=== PATIENT | male | born 1955 | race Caucasian/White ===

== ENCOUNTER 2017-10-03 22:59 | Emergency (ER) | payer MEDICAID ==
[~2017-10-03] VITALS: Ht 180.3 cm; Wt 110.8 kg
[2017-10-04 01:14] LABS: HEMATOCRIT 43.4 % (39.2-51.8); WHITE BLOOD COUNT 5.6 x10^3/uL (3.4-10)
[2017-10-04 01:20] LABS: BLOOD UREA NITROGEN 8 mg/dL (7-18)
[2017-10-04 01:44] VITALS: BP 124/80
== END 2017-10-04 02:44 | disposition home or self-care (01) ==
LOC: ED 10-04 02:38
DX: I87.2 Venous insufficiency (chronic) (peripheral) (principal); R60.0 Localized edema; Z59.0 Homelessness
CPT/HCPCS: 36415; 71020; 80048; 82040; 83880; 85025; 93005

== ENCOUNTER 2017-10-20 20:10 | Inpatient (IN) | payer MEDICAID ==
[~2017-10-20] VITALS: Ht 180.3 cm; Wt 102.0 kg
[2017-10-20] MEDS ORDERED: SODIUM CHLORIDE FLUSH 10ML SYR IVF ONE (20:30)
[2017-10-20] MEDS ORDERED: SODIUM CHLORIDE 0.9% 1,000ML IVBOLUS ONE (20:30)
[2017-10-20 20:55] LABS: WHITE BLOOD COUNT 7.9 x10^3/uL (3.4-10)
[2017-10-20] MEDS ORDERED: ADENOSINE 6 MG/2 ML ONE ×2 (20:56→20:58)
[2017-10-20] MEDS ORDERED: DILTIAZEM 125 MG in SODIUM CHLORIDE 0.9% 100 ML IV ONE (21:07)
[2017-10-20] MEDS ORDERED: DILTIAZEM 5 MG/ML, 5ML ONE (21:07)
[2017-10-20 21:08] LABS: BLOOD UREA NITROGEN 9 mg/dL (7-18)
[2017-10-20 21:13] LABS: IS PT STATUS REG ER OR PRE ER? YES
[2017-10-20] MEDS ORDERED: AMIODARONE 50 MG/ML, 3ML ONE (21:29)
[2017-10-20] MEDS ORDERED: MORPHINE SULFATE 4 MG/ML, 1ML ONE (21:29)
[2017-10-20] MEDS ORDERED: DILTIAZEM 5 MG/ML, 5ML IVPush ONE (21:30)
[2017-10-20] MEDS ORDERED: METOPROLOL 1 MG/ML, 5ML IVPush ONE (21:30)
[2017-10-20] MEDS ORDERED: morphine SULFATE 10 MG/ML, 1ML IVPush ONE (21:30)
[2017-10-20] MEDS ORDERED: AMIODARONE 50 MG/ML, 3ML IVPush ONE (21:30)
[2017-10-20] MEDS ORDERED: ENOXAPARIN 120MG/0.8ML SQ ONE (21:30)
[2017-10-20] MEDS ORDERED: FILTER 0.22 MICRON IV ONE (22:00)
[2017-10-20] MEDS ORDERED: AMIODARONE 150 MG in DEXTROSE 5% 100 ML IV ONE (22:00)
[2017-10-20] MEDS ORDERED: SODIUM CHLORIDE 0.9% 1,000 ML IV SCH (23:21)
[2017-10-20 23:22] VITALS: BP 123/74
[2017-10-20] MEDS ORDERED: HEPARIN 5,000 UNITS/ML, 1ML SQ SCH (23:30)
[2017-10-20] MEDS ORDERED: ADENOSINE 6 MG/2 ML IVPush ONE ×2 (23:30)
[2017-10-20] MEDS ORDERED: DOCUSATE 100 MG CAPSULE PO PRN (23:30)
[2017-10-20] MEDS ORDERED: ONDANSETRON 2MG/ML, 2ML IVPush PRN (23:30)
[2017-10-20] MEDS ORDERED: BISACODYL 10 MG SUPP PR PRN (23:30)
[2017-10-20] MEDS ORDERED: PROMETHAZINE 25 MG/ML, 1ML IM PRN (23:30)
[2017-10-20] MEDS ORDERED: ACETAMINOPHEN 325 MG TABLET PO PRN (23:30)
[2017-10-20] MEDS ORDERED: VANCOMYCIN PER PHARMACY MC PRN (23:45)
[2017-10-21] MEDS: VANCOMYCIN 2,000 MG in SODIUM CHLORIDE 0.9% 500 ML IV SCH ×2 (00:16→13:53)
[2017-10-21 01:35] VITALS: BP 118/71
[2017-10-21 05:34] LABS: HEMATOCRIT 39.3 % (39.2-51.8); HEMOGLOBIN 13.2 g/dL (13.7-18.0); WHITE BLOOD COUNT 8.1 x10^3/uL (3.4-10)
[2017-10-21 06:16] LABS: ASPARTATE AMINO TRANSFERASE 81 U/L (15-37); BLOOD UREA NITROGEN 9 mg/dL (7-18)
[2017-10-21 08:30] VITALS: BP 98/55
[2017-10-21 15:08] VITALS: BP 121/68
[2017-10-21] MEDS: ENOXAPARIN 40 MG/0.4 ML SQ SCH (18:30)
[2017-10-21 18:52] VITALS: BP 113/68
[2017-10-21] MEDS: FAMOTIDINE 20 MG/2 ML IVPush SCH (20:24)
[2017-10-21] MEDS: CLOTRIMAZOLE CRM 1%, 15GM TP SCH (22:19)
[2017-10-22] MEDS: VANCOMYCIN 2,000 MG in SODIUM CHLORIDE 0.9% 500 ML IV SCH ×2 (01:39→12:39)
[2017-10-22 01:51] VITALS: BP 111/77
[2017-10-22 06:11] LABS: BLOOD UREA NITROGEN 8 mg/dL (7-18)
[2017-10-22 07:30] VITALS: BP 118/61
[2017-10-22] MEDS: FAMOTIDINE 20 MG/2 ML IVPush SCH ×2 (08:34→20:48)
[2017-10-22] MEDS: CLOTRIMAZOLE CRM 1%, 15GM TP SCH ×2 (08:34→20:48)
[2017-10-22 11:34] LABS: ABG COLLECTION SITE RIGHT RADIAL; COLLATERAL CIRCULATION TESTING NORMAL
[2017-10-22 13:40] VITALS: BP 113/67
[2017-10-22] MEDS: ENOXAPARIN 40 MG/0.4 ML SQ SCH (16:29)
[2017-10-22 18:24] VITALS: BP 121/68
[2017-10-23] MEDS: VANCOMYCIN 2,000 MG in SODIUM CHLORIDE 0.9% 500 ML IV SCH ×2 (00:37→12:33)
[2017-10-23 02:54] VITALS: BP 149/81
[2017-10-23 06:30] VITALS: BP 131/68
[2017-10-23] MEDS: FAMOTIDINE 20 MG/2 ML IVPush SCH ×2 (09:07→20:55)
[2017-10-23] MEDS: CLOTRIMAZOLE CRM 1%, 15GM TP SCH ×2 (09:07→20:55)
[2017-10-23 12:30] VITALS: BP 121/69
[2017-10-23] MEDS: ENOXAPARIN 40 MG/0.4 ML SQ SCH (15:34)
[2017-10-23 20:00] VITALS: BP 128/72
[2017-10-24] MEDS: VANCOMYCIN 2,000 MG in SODIUM CHLORIDE 0.9% 500 ML IV SCH ×2 (00:18→12:41)
[2017-10-24 02:36] VITALS: BP 135/68
[2017-10-24 06:22] LABS: BLOOD UREA NITROGEN 8 mg/dL (7-18)
[2017-10-24 08:09] VITALS: BP 116/61
[2017-10-24] MEDS: MAGNESIUM CHLORIDE 64 MG TABLET.DR PO SCH ×2 (08:42→22:16)
[2017-10-24] MEDS: FAMOTIDINE 20 MG/2 ML IVPush SCH ×2 (08:43→21:53)
[2017-10-24] MEDS: CLOTRIMAZOLE CRM 1%, 15GM TP SCH ×2 (08:43→21:00)
[2017-10-24] MEDS: ENOXAPARIN 40 MG/0.4 ML SQ SCH (14:14)
[2017-10-24 15:22] VITALS: BP 123/67
[2017-10-24] MEDS ORDERED: PHARMACOKINETIC CONSULTATION MC ONE ×2 (18:00)
[2017-10-24 20:00] VITALS: BP 131/71
[2017-10-25] MEDS: VANCOMYCIN 2,000 MG in SODIUM CHLORIDE 0.9% 500 ML IV SCH ×2 (00:14→11:56)
[2017-10-25 02:00] VITALS: BP 129/73
[2017-10-25] MEDS ORDERED: SULF1TAB24 PO (06:41)
[2017-10-25] MEDS ORDERED: CLOT15CR5 TP (06:41)
[2017-10-25] MEDS: MAGNESIUM CHLORIDE 64 MG TABLET.DR PO SCH (07:46)
[2017-10-25] MEDS: CLOTRIMAZOLE CRM 1%, 15GM TP SCH (07:46)
[2017-10-25] MEDS: FAMOTIDINE 20 MG/2 ML IVPush SCH (07:46)
[2017-10-25 07:50] VITALS: BP 127/69
[2017-10-25] MEDS ORDERED: ACET325T14 PO (08:29)
[2017-10-25] MEDS ORDERED: TRAM50TA2 PO (08:29)
[2017-10-25] MEDS ORDERED: MAGN64TA9 PO (08:29)
[2017-10-25] MEDS: ENOXAPARIN 40 MG/0.4 ML SQ SCH (14:30)
[2017-10-25 14:42] VITALS: BP 131/60
== END 2017-10-25 15:20 | disposition home or self-care (01) | DRG 872 ==
LOC: ED 20:22 → EDIP 22:23 → 5SO 23:16 → 4WST 10-21 06:00
PROVIDERS: ADMIT Surgery; ATTEND Surgery
DX: A41.9 Sepsis, unspecified organism (principal); I11.0 Hypertensive heart disease with heart failure; E83.42 Hypomagnesemia; E83.51 Hypocalcemia; I50.9 Heart failure, unspecified; B35.3 Tinea pedis; E88.09 Other disorders of plasma-protein metabolism, not elsewhere classified; I48.91 Unspecified atrial fibrillation; I34.0 Nonrheumatic mitral (valve) insufficiency; I48.92 Unspecified atrial flutter; L03.115 Cellulitis of right lower limb; S52.92XA Unspecified fracture of left forearm, initial encounter for closed fracture; W18.39XA Other fall on same level, initial encounter; R26.2 Difficulty in walking, not elsewhere classified; I49.9 Cardiac arrhythmia, unspecified; S62.609A Fracture of unspecified phalanx of unspecified finger, initial encounter for closed fracture; Y92.410 Unspecified street and highway as the place of occurrence of the external cause; Z59.0 Homelessness; Z87.891 Personal history of nicotine dependence; Y93.89 Activity, other specified; Y92.89 Other specified places as the place of occurrence of the external cause; Y99.8 Other external cause status
CPT/HCPCS: 36415; 36600; 70450; 71010; 80048; 80053; 80061; 80202; 82040; 82803; 83036; 83735; 83880; 84100; 84484; 85025; 93005; 93306; 96361; 96365; 96366; 96372; J0153; J1650; J3370; J0282; J2270; J7030; J7040; S0028

== ENCOUNTER 2017-11-27 02:42 | Emergency (ER) | payer MEDICAID ==
[~2017-11-27] VITALS: Ht 177.8 cm; Wt 95.7 kg
[~2017-11-27 02:42] MED LIST: ACET325T14 PO; CLOT15CR5 TP; MAGN64TA9 PO; SULF1TAB24 PO; TRAM50TA2 PO
[2017-11-27 02:43] VITALS: BP 147/80
[2017-11-27 03:33] LABS: MEAN CORPUSCULAR HEMOGLOBIN 33.1 pg (27.5-34.5); MEAN CORPUSCULAR HGB CONC 33.9 g/dL (33.2-36.2); MEAN CORPUSCULAR VOLUME 97.4 fL (81-97); MEAN PLATELET VOLUME 9.3 fL (7.4-10.4); PLATELET COUNT 122 x10^3/uL (130-400); RED BLOOD COUNT 4.64 x10^6/uL (4.38-5.82)
[2017-11-27 03:43] LABS: ALBUMIN 1.9 g/dL (3.4-5.0); ANION GAP 4 mmol/L (5-15); CALCIUM 7.9 mg/dL (8.5-10.1); CHLORIDE 104 mmol/L (98-107); CREATININE 0.61 mg/dL (0.7-1.3)
[2017-11-27] MEDS ORDERED: LIDOCAINE 1%, 20ML ONE (03:55)
[2017-11-27] MEDS ORDERED: BACITRACIN ZINC OINT 500U/GM, 0.9 GM ONE (03:56)
[2017-11-27] MEDS ORDERED: DOXYCYCLINE 100MG TABLET PO ONE (04:00)
[2017-11-27 04:46] LABS: BASOPHILS # (AUTO) 0.05 x10^3/uL (0-0.1); BASOPHILS % (AUTO) 0 % (0-1); EOSINOPHILS # (AUTO) 0.16 x10^3/uL (0-0.4); EOSINOPHILS % (AUTO) 1 % (1-7); LYMPHOCYTES # (AUTO) 2.02 x10^3/uL (1-3.4); LYMPHOCYTES % (AUTO) 17 % (22-44); MD SCAN; MONOCYTES # (AUTO) 1.45 x10^3/uL (0.2-0.8); MONOCYTES % (AUTO) 12 % (2-9); NEUTROPHILS # (AUTO) 8.02 x10^3/uL (1.8-6.8); NEUTROPHILS % (AUTO) 69 % (42-75)
== END 2017-11-27 04:40 | disposition home or self-care (01) ==
LOC: ED 03:09
DX: L02.415 Cutaneous abscess of right lower limb (principal); L03.115 Cellulitis of right lower limb; G89.29 Other chronic pain; M79.602 Pain in left arm; I10 Essential (primary) hypertension
CPT/HCPCS: 10060; 36415; 80048; 82040; 85025; 99284

== ENCOUNTER 2018-04-27 10:08 | Inpatient (IN) | payer MEDICAID ==
[~2018-04-27] VITALS: Ht 172.7 cm; Wt 89.4 kg
[~2018-04-27 10:08] MED LIST changes: -MAGN64TA9 PO; +MAGNESIUM DR64 MG PO
[2018-04-27] MEDS ORDERED: SODIUM CHLORIDE 0.9% 1,000 ML IV ONE ×2 (10:39→12:05)
[2018-04-27] MEDS ORDERED: SODIUM CHLORIDE FLUSH 10ML SYR IVF ONE (11:00)
[2018-04-27] MEDS ORDERED: SODIUM CHLORIDE 0.9% 1,000ML IVBOLUS ONE ×2 (11:00→12:00)
[2018-04-27 11:09] LABS: INTERNATIONAL NORMALIZED RATIO 1.2 (0.93-1.1); PROTHROMBIN TIME 12.3 Seconds (9.6-11.5)
[2018-04-27 11:14] LABS: ALANINE AMINOTRANSFERASE 121 U/L (12-78); ANION GAP 6 mmol/L (5-15); CHLORIDE 110 mmol/L (98-107)
[2018-04-27 11:16] LABS: BILIRUBIN,TOTAL 2.6 mg/dL (0.2-1.0); CREATININE 0.55 mg/dL (0.7-1.3)
[2018-04-27 11:17] LABS: ACETAMINOPHEN < 2 mcg/mL (10-30); ALKALINE PHOSPHATASE 313 U/L (45-117); BASOPHILS # (AUTO) 0.05 x10^3/uL (0-0.1); BASOPHILS % (AUTO) 1 % (0-1); EOSINOPHILS # (AUTO) 0.17 x10^3/uL (0-0.4); EOSINOPHILS % (AUTO) 3 % (1-7); LYMPHOCYTES # (AUTO) 1.62 x10^3/uL (1-3.4); LYMPHOCYTES % (AUTO) 27 % (22-44); MD NO; MEAN CORPUSCULAR HEMOGLOBIN 32.6 pg (27.5-34.5); MEAN CORPUSCULAR HGB CONC 33.9 g/dL (33.2-36.2); MEAN CORPUSCULAR VOLUME 96.3 fL (81-97); MEAN PLATELET VOLUME 10.8 fL (7.4-10.4); MONOCYTES # (AUTO) 0.64 x10^3/uL (0.2-0.8); MONOCYTES % (AUTO) 11 % (2-9); NEUTROPHILS # (AUTO) 3.51 x10^3/uL (1.8-6.8); NEUTROPHILS % (AUTO) 59 % (42-75); PLATELET COUNT 101 x10^3/uL (130-400); RED CELL DISTRIBUTION WIDTH 15.4 % (9.4-14.8); SALICYLATE LEVEL < 1.7 mg/dL (2.8-20.0); TOTAL PROTEIN 6.6 g/dL (6.4-8.2)
[2018-04-27 11:25] LABS: CULTURE INDICATED? YES; MICROSCOPIC INDICATED
[2018-04-27] MEDS ORDERED: LACTULOSE 20 GM/30 ML UDC PO ONE (11:30)
[2018-04-27] MEDS ORDERED: CEFTRIAXONE PMX 1GM/50ML 50 ML ONE (11:54)
[2018-04-27] MEDS ORDERED: CEFTRIAXONE PMX 1GM/50ML 50 ML IV ONE (12:00)
[2018-04-27] MEDS ORDERED: SODIUM CHLORIDE FLUSH 10ML SYR IVF PRN (12:30)
[2018-04-27] MEDS ORDERED: hydrALAzine 20 MG/ML, 1ML IVPush PRN (13:30)
[2018-04-27] MEDS ORDERED: POLYETHYLENE GLYCOL 17 GM PACKET PO PRN (13:30)
[2018-04-27] MEDS ORDERED: CEFTRIAXONE PMX 1GM/50ML 50 ML IV SCH (13:30)
[2018-04-27] MEDS ORDERED: BISACODYL 10 MG SUPP PR PRN (13:30)
[2018-04-27] MEDS ORDERED: DOCUSATE 100 MG CAPSULE PO PRN (13:30)
[2018-04-27] MEDS ORDERED: ONDANSETRON 2MG/ML, 2ML IVPush PRN (13:30)
[2018-04-27] MEDS ORDERED: ACETAMINOPHEN 325 MG TABLET PO PRN (13:30)
[2018-04-27 14:25] LABS: AMPHETAMINE SCREEN, URINE Positive (Negative); BARBITURATE SCREEN, URINE Negative (Negative); BENZODIAZEPINE SCREEN, URINE Negative (Negative); CANNABINOID SCREEN, URINE Negative (Negative); COCAINE SCREEN, URINE Negative (Negative); METHADONE SCREEN, URINE Negative (Negative); OPIATE SCREEN, URINE Negative (Negative)
[2018-04-27] MEDS: SODIUM CHLORIDE 0.9% 1,000 ML IV SCH (15:48)
[2018-04-27] MEDS: CEFTRIAXONE 1,000 MG in SODIUM CHLORIDE 0.9% 50 ML IV SCH (17:13)
[2018-04-27] MEDS: LACTULOSE 20 GM/30 ML UDC PO SCH ×2 (17:14→22:07)
[2018-04-27 17:25] VITALS: BP 138/76
[2018-04-27] MEDS: POTASSIUM CHLORIDE 20 MEQ, MAGNESIUM SULFATE 1 GM, MVI ADULT 10 ML, THIAMINE 200 MG, FO... IV SCH (18:42)
[2018-04-27 19:12] VITALS: BP 149/84
[2018-04-28 00:33] VITALS: BP 137/83
[2018-04-28 04:03] VITALS: BP 124/68
[2018-04-28 04:38] LABS: BASOPHILS # (AUTO) 0.04 x10^3/uL (0-0.1); BASOPHILS % (AUTO) 1 % (0-1); EOSINOPHILS # (AUTO) 0.19 x10^3/uL (0-0.4); EOSINOPHILS % (AUTO) 3 % (1-7); LYMPHOCYTES % (AUTO) 29 % (22-44); MD NO; MEAN CORPUSCULAR HEMOGLOBIN 31.9 pg (27.5-34.5); MEAN CORPUSCULAR HGB CONC 33.3 g/dL (33.2-36.2); MEAN CORPUSCULAR VOLUME 95.7 fL (81-97); MEAN PLATELET VOLUME 10.4 fL (7.4-10.4); MONOCYTES # (AUTO) 0.68 x10^3/uL (0.2-0.8); MONOCYTES % (AUTO) 11 % (2-9); NEUTROPHILS # (AUTO) 3.58 x10^3/uL (1.8-6.8); NEUTROPHILS % (AUTO) 57 % (42-75); PLATELET COUNT 100 x10^3/uL (130-400); RED BLOOD COUNT 4.51 x10^6/uL (4.38-5.82)
[2018-04-28 04:49] LABS: ALANINE AMINOTRANSFERASE 114 U/L (12-78); ALBUMIN 1.7 g/dL (3.4-5.0); ANION GAP 2 mmol/L (5-15); CHLORIDE 110 mmol/L (98-107); CREATININE 0.59 mg/dL (0.7-1.3)
[2018-04-28 04:51] LABS: ALKALINE PHOSPHATASE 287 U/L (45-117); BILIRUBIN,TOTAL 3.6 mg/dL (0.2-1.0); TOTAL PROTEIN 6.2 g/dL (6.4-8.2)
[2018-04-28] MEDS: SODIUM CHLORIDE 0.9% 1,000 ML IV SCH ×2 (06:38→07:53)
[2018-04-28 06:50] VITALS: BP 126/68
[2018-04-28] MEDS: LACTULOSE 20 GM/30 ML UDC PO SCH ×3 (07:53→21:47)
[2018-04-28 11:56] VITALS: BP 121/86
[2018-04-28 12:00] VITALS: BP 121/86
[2018-04-28] MEDS: CEFTRIAXONE 1,000 MG in SODIUM CHLORIDE 0.9% 50 ML IV SCH (17:37)
[2018-04-28] MEDS: POTASSIUM CHLORIDE 20 MEQ, MAGNESIUM SULFATE 1 GM, MVI ADULT 10 ML, THIAMINE 200 MG, FO... IV SCH (18:29)
[2018-04-28 19:13] VITALS: BP 125/78
[2018-04-29] VITALS (8 sets, daily range): BP systolic 109–138; BP diastolic 59–83
[2018-04-29 04:58] LABS: BASOPHILS # (AUTO) 0.04 x10^3/uL (0-0.1); BASOPHILS % (AUTO) 1 % (0-1); EOSINOPHILS # (AUTO) 0.17 x10^3/uL (0-0.4); EOSINOPHILS % (AUTO) 3 % (1-7); LYMPHOCYTES # (AUTO) 1.82 x10^3/uL (1-3.4); LYMPHOCYTES % (AUTO) 28 % (22-44); MD NO; MEAN CORPUSCULAR HEMOGLOBIN 32.3 pg (27.5-34.5); MEAN CORPUSCULAR HGB CONC 33.6 g/dL (33.2-36.2); MEAN CORPUSCULAR VOLUME 96.1 fL (81-97); MEAN PLATELET VOLUME 11.2 fL (7.4-10.4); MONOCYTES # (AUTO) 0.76 x10^3/uL (0.2-0.8); MONOCYTES % (AUTO) 12 % (2-9); NEUTROPHILS # (AUTO) 3.83 x10^3/uL (1.8-6.8); NEUTROPHILS % (AUTO) 58 % (42-75); PLATELET COUNT 104 x10^3/uL (130-400); RED BLOOD COUNT 4.46 x10^6/uL (4.38-5.82); RED CELL DISTRIBUTION WIDTH 15.9 % (9.4-14.8)
[2018-04-29 05:07] LABS: ALBUMIN 1.7 g/dL (3.4-5.0); CALCIUM 7.4 mg/dL (8.5-10.1); CHLORIDE 108 mmol/L (98-107)
[2018-04-29 05:12] LABS: ALANINE AMINOTRANSFERASE 122 U/L (12-78); ALKALINE PHOSPHATASE 300 U/L (45-117); ANION GAP 7 mmol/L (5-15); BILIRUBIN, DIRECT 1.2 mg/dL (0.1-0.2); BILIRUBIN,INDIRECT 1.2 mg/dL (0.0-2.0); BILIRUBIN,TOTAL 2.4 mg/dL (0.2-1.0); CREATININE 0.46 mg/dL (0.7-1.3); TOTAL PROTEIN 6.2 g/dL (6.4-8.2)
[2018-04-29] MEDS: LACTULOSE 20 GM/30 ML UDC PO SCH ×3 (10:12→22:09)
[2018-04-29] MEDS ORDERED: GADOBUTROL 10 MMOL/10 ML VIAL ONE (12:29)
[2018-04-29] MEDS: CEFTRIAXONE 1,000 MG in SODIUM CHLORIDE 0.9% 50 ML IV SCH (17:04)
[2018-04-29] MEDS: POTASSIUM CHLORIDE 20 MEQ, MAGNESIUM SULFATE 1 GM, MVI ADULT 10 ML, THIAMINE 200 MG, FO... IV SCH (18:35)
[2018-04-30 00:34] VITALS: BP 125/88
[2018-04-30 04:10] VITALS: BP 129/81
[2018-04-30 06:05] VITALS: BP 134/76
[2018-04-30] MEDS ORDERED: LACTULOSE 20 GM/30 ML UDC PO PRN (07:00)
[2018-04-30 07:07] LABS: BASOPHILS # (AUTO) 0.06 x10^3/uL (0-0.1); BASOPHILS % (AUTO) 1 % (0-1); EOSINOPHILS % (AUTO) 3 % (1-7); LYMPHOCYTES # (AUTO) 2.03 x10^3/uL (1-3.4); LYMPHOCYTES % (AUTO) 28 % (22-44); MD NO; MEAN CORPUSCULAR HEMOGLOBIN 32.2 pg (27.5-34.5); MEAN CORPUSCULAR HGB CONC 33.8 g/dL (33.2-36.2); MEAN CORPUSCULAR VOLUME 95.2 fL (81-97); MEAN PLATELET VOLUME 10.5 fL (7.4-10.4); MONOCYTES # (AUTO) 0.79 x10^3/uL (0.2-0.8); MONOCYTES % (AUTO) 11 % (2-9); NEUTROPHILS # (AUTO) 4.08 x10^3/uL (1.8-6.8); NEUTROPHILS % (AUTO) 57 % (42-75); PLATELET COUNT 107 x10^3/uL (130-400); RED BLOOD COUNT 4.57 x10^6/uL (4.38-5.82); RED CELL DISTRIBUTION WIDTH 16.3 % (9.4-14.8)
[2018-04-30 07:20] LABS: ALANINE AMINOTRANSFERASE 132 U/L (12-78); ALBUMIN 1.8 g/dL (3.4-5.0); ANION GAP 3 mmol/L (5-15); CALCIUM 7.6 mg/dL (8.5-10.1); CHLORIDE 111 mmol/L (98-107); CREATININE 0.46 mg/dL (0.7-1.3)
[2018-04-30 07:22] LABS: ALKALINE PHOSPHATASE 310 U/L (45-117); BILIRUBIN,TOTAL 2.5 mg/dL (0.2-1.0); TOTAL PROTEIN 6.4 g/dL (6.4-8.2)
[2018-04-30] MEDS: RIFAXIMIN 550 MG TABLET PO SCH ×2 (11:35→21:27)
[2018-04-30 11:54] VITALS: BP 121/66
[2018-04-30] MEDS: LACTULOSE 20 GM/30 ML UDC PO SCH ×2 (15:52→21:27)
[2018-04-30 16:40] VITALS: BP 142/75
[2018-04-30] MEDS: CEFTRIAXONE 1,000 MG in SODIUM CHLORIDE 0.9% 50 ML IV SCH (17:30)
[2018-04-30] MEDS: POTASSIUM CHLORIDE 20 MEQ, MAGNESIUM SULFATE 1 GM, MVI ADULT 10 ML, THIAMINE 200 MG, FO... IV SCH (18:23)
[2018-04-30 19:04] VITALS: BP 126/72
[2018-05-01 03:02] VITALS: BP 136/85
[2018-05-01 07:00] LABS: BASOPHILS # (AUTO) 0.04 x10^3/uL (0-0.1); BASOPHILS % (AUTO) 1 % (0-1); EOSINOPHILS # (AUTO) 0.21 x10^3/uL (0-0.4); EOSINOPHILS % (AUTO) 4 % (1-7); LYMPHOCYTES # (AUTO) 1.93 x10^3/uL (1-3.4); LYMPHOCYTES % (AUTO) 33 % (22-44); MD NO; MEAN CORPUSCULAR HEMOGLOBIN 32.2 pg (27.5-34.5); MEAN CORPUSCULAR HGB CONC 33.8 g/dL (33.2-36.2); MEAN CORPUSCULAR VOLUME 95.2 fL (81-97); MEAN PLATELET VOLUME 10.5 fL (7.4-10.4); MONOCYTES # (AUTO) 0.59 x10^3/uL (0.2-0.8); MONOCYTES % (AUTO) 10 % (2-9); NEUTROPHILS # (AUTO) 3.04 x10^3/uL (1.8-6.8); NEUTROPHILS % (AUTO) 52 % (42-75); PLATELET COUNT 102 x10^3/uL (130-400); RED BLOOD COUNT 4.43 x10^6/uL (4.38-5.82)
[2018-05-01 07:25] LABS: ALANINE AMINOTRANSFERASE 125 U/L (12-78); ALBUMIN 1.6 g/dL (3.4-5.0); ANION GAP 6 mmol/L (5-15); CHLORIDE 110 mmol/L (98-107); CREATININE 0.41 mg/dL (0.7-1.3)
[2018-05-01 07:28] LABS: ALKALINE PHOSPHATASE 308 U/L (45-117); BILIRUBIN,TOTAL 2.5 mg/dL (0.2-1.0); TOTAL PROTEIN 6.1 g/dL (6.4-8.2)
[2018-05-01] MEDS ORDERED: CEFTRIAXONE 1,000 MG in SODIUM CHLORIDE 0.9% 50 ML IV SCH (07:30)
[2018-05-01] MEDS: FUROSEMIDE 20 MG TABLET PO SCH (07:36)
[2018-05-01] MEDS: RIFAXIMIN 550 MG TABLET PO SCH ×2 (07:36→21:38)
[2018-05-01] MEDS: SPIRONOLACTONE 50 MG TABLET PO SCH (07:36)
[2018-05-01] MEDS: LACTULOSE 20 GM/30 ML UDC PO SCH ×3 (07:36→21:38)
[2018-05-01 07:48] VITALS: BP 132/79
[2018-05-01] MEDS ORDERED: ALBUMIN HUMAN 25% 100 ML IV PRN (10:30)
[2018-05-01 12:34] VITALS: BP 126/74
[2018-05-01] MEDS ORDERED: CEFTRIAXONE PMX 1GM/50ML 50 ML IV SCH (17:30)
[2018-05-01] MEDS: POTASSIUM CHLORIDE 20 MEQ, MAGNESIUM SULFATE 1 GM, MVI ADULT 10 ML, THIAMINE 200 MG, FO... IV SCH (18:32)
[2018-05-01 19:36] VITALS: BP 113/62
[2018-05-02 01:00] VITALS: BP 128/74
[2018-05-02 06:53] VITALS: BP 134/71
[2018-05-02] MEDS: SPIRONOLACTONE 50 MG TABLET PO SCH (07:49)
[2018-05-02] MEDS: RIFAXIMIN 550 MG TABLET PO SCH ×2 (07:49→22:01)
[2018-05-02] MEDS: LACTULOSE 20 GM/30 ML UDC PO SCH ×4 (07:49→22:00)
[2018-05-02] MEDS: FUROSEMIDE 20 MG TABLET PO SCH (07:49)
[2018-05-02 08:32] LABS: BASOPHILS # (AUTO) 0.02 x10^3/uL (0-0.1); BASOPHILS % (AUTO) 1 % (0-1); EOSINOPHILS # (AUTO) 0.18 x10^3/uL (0-0.4); EOSINOPHILS % (AUTO) 3 % (1-7); LYMPHOCYTES # (AUTO) 1.62 x10^3/uL (1-3.4); LYMPHOCYTES % (AUTO) 31 % (22-44); MD NO; MEAN CORPUSCULAR HEMOGLOBIN 32.3 pg (27.5-34.5); MEAN CORPUSCULAR HGB CONC 33.7 g/dL (33.2-36.2); MEAN CORPUSCULAR VOLUME 95.7 fL (81-97); MEAN PLATELET VOLUME 11.2 fL (7.4-10.4); MONOCYTES % (AUTO) 12 % (2-9); NEUTROPHILS # (AUTO) 2.82 x10^3/uL (1.8-6.8); NEUTROPHILS % (AUTO) 54 % (42-75); PLATELET COUNT 101 x10^3/uL (130-400); RED BLOOD COUNT 4.55 x10^6/uL (4.38-5.82); RED CELL DISTRIBUTION WIDTH 16.6 % (9.4-14.8)
[2018-05-02 08:48] LABS: ALBUMIN 2.2 g/dL (3.4-5.0); ANION GAP 5 mmol/L (5-15); CALCIUM 8.5 mg/dL (8.5-10.1); CHLORIDE 108 mmol/L (98-107)
[2018-05-02 08:52] LABS: ALANINE AMINOTRANSFERASE 130 U/L (12-78); ALKALINE PHOSPHATASE 301 U/L (45-117); BILIRUBIN,TOTAL 3.3 mg/dL (0.2-1.0); CREATININE 0.54 mg/dL (0.7-1.3); TOTAL PROTEIN 6.7 g/dL (6.4-8.2)
[2018-05-02] MEDS ORDERED: ALBUMIN HUMAN 25% 100 ML IV ONE (10:30)
[2018-05-02 13:02] VITALS: BP 125/72
[2018-05-02 19:14] VITALS: BP 117/70
[2018-05-02] MEDS ORDERED: PROPRANOLOL 20 MG TABLET PO SCH (21:00)
[2018-05-02] MEDS: CEFDINIR 300 MG CAPSULE PO SCH (22:01)
[2018-05-03 00:20] VITALS: BP 117/73
[2018-05-03 05:15] LABS: ANION GAP 6 mmol/L (5-15); CALCIUM 8.4 mg/dL (8.5-10.1); CHLORIDE 108 mmol/L (98-107)
[2018-05-03 05:19] LABS: ALANINE AMINOTRANSFERASE 125 U/L (12-78); ALKALINE PHOSPHATASE 292 U/L (45-117); BILIRUBIN,TOTAL 2.5 mg/dL (0.2-1.0); CREATININE 0.56 mg/dL (0.7-1.3); TOTAL PROTEIN 6.3 g/dL (6.4-8.2)
[2018-05-03 05:52] LABS: BASOPHILS # (AUTO) 0.05 x10^3/uL (0-0.1); BASOPHILS % (AUTO) 1 % (0-1); EOSINOPHILS # (AUTO) 0.23 x10^3/uL (0-0.4); EOSINOPHILS % (AUTO) 3 % (1-7); LYMPHOCYTES # (AUTO) 2.38 x10^3/uL (1-3.4); LYMPHOCYTES % (AUTO) 29 % (22-44); MD SCAN; MEAN CORPUSCULAR HEMOGLOBIN 33.2 pg (27.5-34.5); MEAN CORPUSCULAR HGB CONC 34.4 g/dL (33.2-36.2); MEAN CORPUSCULAR VOLUME 96.4 fL (81-97); MEAN PLATELET VOLUME 11.1 fL (7.4-10.4); MONOCYTES # (AUTO) 1.09 x10^3/uL (0.2-0.8); MONOCYTES % (AUTO) 14 % (2-9); NEUTROPHILS # (AUTO) 4.34 x10^3/uL (1.8-6.8); NEUTROPHILS % (AUTO) 54 % (42-75); PLATELET COUNT 111 x10^3/uL (130-400); RED BLOOD COUNT 4.36 x10^6/uL (4.38-5.82); RED CELL DISTRIBUTION WIDTH 16.3 % (9.4-14.8)
[2018-05-03] MEDS: LACTULOSE 20 GM/30 ML UDC PO SCH ×3 (06:00→16:33)
[2018-05-03 06:45] VITALS: BP 119/67
[2018-05-03] MEDS: RIFAXIMIN 550 MG TABLET PO SCH (08:55)
[2018-05-03] MEDS: CEFDINIR 300 MG CAPSULE PO SCH (08:55)
[2018-05-03] MEDS: FUROSEMIDE 20 MG TABLET PO SCH (08:55)
[2018-05-03] MEDS: SPIRONOLACTONE 50 MG TABLET PO SCH (08:56)
[2018-05-03] MEDS ORDERED: LACTULOSE 3.3 GM/5 ML ORAL.SOL RC ONE (10:00)
[2018-05-03 12:29] VITALS: BP 97/60
[2018-05-03 18:53] VITALS: BP 96/63
== END 2018-05-03 21:15 | disposition left against medical advice (07) | DRG 432 ==
LOC: ED 12:04 → EDIP 12:05 → 3NE 13:54
PROVIDERS: ADMIT Hospitalist; ATTEND Hospitalist
DX: K70.40 Alcoholic hepatic failure without coma (principal); E43 Unspecified severe protein-calorie malnutrition; N10 Acute pyelonephritis; K76.6 Portal hypertension; K70.10 Alcoholic hepatitis without ascites; D69.6 Thrombocytopenia, unspecified; F15.10 Other stimulant abuse, uncomplicated; Z71.51 Drug abuse counseling and surveillance of drug abuser; I11.9 Hypertensive heart disease without heart failure; F17.200 Nicotine dependence, unspecified, uncomplicated; K74.60 Unspecified cirrhosis of liver; R62.7 Adult failure to thrive; Z59.0 Homelessness; Z68.30 Body mass index [BMI] 30.0-30.9, adult; Z53.21 Procedure and treatment not carried out due to patient leaving prior to being seen by health care provider
CPT/HCPCS: 36415; 70450; 71045; 74183; 76700; 80053; 80307; 80329; 81001; 82140; 82247; 82248; 83735; 84100; 85025; 85610; 85730; 87086; 93005; 99285; A9585; J0696; J3411; J3475; J3480; P9047; G0480; J7030

== ENCOUNTER 2018-05-11 22:08 | Emergency (ER) | payer MEDICAID ==
[~2018-05-11] VITALS: Ht 180.3 cm; Wt 103.2 kg
[2018-05-11 22:36] VITALS: BP 112/64
== END 2018-05-11 23:31 | disposition home or self-care (01) ==
LOC: ED 23:21
DX: K40.90 Unilateral inguinal hernia, without obstruction or gangrene, not specified as recurrent (principal); I10 Essential (primary) hypertension
CPT/HCPCS: 99281; 99406